=== PATIENT | male | born 1960 | race Caucasian/White ===

== ENCOUNTER 2019-05-29 15:13 | Inpatient (IN) | payer OTHER ==
[2019-05-29 17:19] VITALS: BMI 20.2
--- NOTE | 2019-05-29 18:02 | HP ---
CIWA Score Nausea/Vomitin-No Nausea/No Vomiting Muscle Tremors: None Anxiety: 4-Mod. Anxious/Guarded Agitation: 4-Moderately Restless Paroxysmal Sweats: 3 Orientation: 1-Uncertain about Date Tacttile Disturbances: 0-None Auditory Disturbances: 0-None Visual Disturbances: 0-None Headache: 0-None Present CIWA-Ar Total Score: 12 - Admission Criteria OASAS Guidelines: Admission for Medically Managed Detox: Requires at least one of the followin. CIWA greater than 12 2. Seizures within the past 24 hours 3. Delirium tremens within the past 24 hours 4. Hallucinations within the past 24 hours 5. Acute intervention needed for co occurring medical disorder 6. Acute intervention needed for co occurring psychiatric disorder 7. Severe withdrawal that cannot be handled at a lower level of care (continued vomiting, continued diarrhea, abnormal vital signs) requiring intravenous medication and/or fluids 8. Patient presents the following: CIWA greater than 12 Admission Criteria Met: Admission criteria met Admission ROS [facility] Chief Complaint: SEEKING ALCOHOL DETOX Allergies/Adverse Reactions: Allergies Allergy/AdvReac Type Severity Reaction Status Date / Time No Known Allergies Allergy Verified 05/29/19 17:02 History of Present Illness: HERE FOR ALCOHOL DETOX. CLIENT IS REFERRED BY [facility] WHERE HE IS ON METHADONE 70 MG DAILY. CLIENT REPORTS LAST DOSE 1 DAY AGO PENDING VERIFICATION. REPORTS DAILY ALCOHOL INTAKE. 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 DENIES IVDA, DRUG OVERDOSE , SEIZURES, BLACKOUTS. CLIENT CONT TO USE 4 BAGS OF HEROIN DAILY DESPITE BEING ON MMTP. THIS IS HIS FIRST ADMISSION HERE. LAST DETOX "YEARS ". LONGEST CLEAN TIME 7 YEARS RELAPSING OVER 20 YEARS AGO. DENIES ANY CLEAN TIME THIS PAST YEAR. LIVES W/ , UNEMPLOYED, DENIES LEGALS Exam Limitations: No Limitations - Ebola screening Have you traveled outside of the country in the last 21 days: No (N) Have you had contact with anyone from an Ebola affected area: No Do you have a fever: No - Review of Systems Constitutional: Changes in sleep, Unintentional Wgt. Loss EENT: reports: Blurred Vision (GLASSES), Dental Problems (MISSING TEETH), Other Respiratory: reports: Shortness of Breath (HX/O ASTHMA) Cardiac: reports: No Symptoms Reported GI: reports: Poor Fluid Intake : reports: No Symptoms Reported Musculoskeletal: reports: No Symptoms Reported Integumentary: reports: No Symptoms Reported Neuro: reports: No Symptoms reported Endocrine: reports: No Symptoms Reported Hematology: reports: No Symptoms Reported Psychiatric: reports: Orientated x3, Anxious Other Systems: Reviewed and Negative Patient History - Patient Medical History Hx Anemia: No Hx Asthma: Yes Hx Chronic Obstructive Pulmonary Disease (COPD): No Hx Cancer: No Hx Cardiac Disorders: No Hx Congestive Heart Failure: No Hx Hypertension: No Hx Hypercholesterolemia: No Hx Pacemaker: No HX Cerebrovascular Accident: No Hx Seizures: No Hx Dementia: No Hx Diabetes: No Hx Gastrointestinal Disorders: No Hx Liver Disease: No Hx Genitourinary Disorders: No Hx Sexually Transmitted Disorders: No Hx Renal Disease (ESRD): No Hx Thyroid Disease: No Hx Human Immunodeficiency Virus (HIV): No Hx Hepatitis C: No Hx Depression: No Hx Suicide Attempt: No Hx Bipolar Disorder: No Hx Schizophrenia: No Other Medical History: DENIES - Patient Surgical History Past Surgical History: No - PPD History Previous Implant?: Yes Documented Results: Positive w/o proof Implanted On Prior [facility] Admission?: No PPD to be Administered?: No - Smoking Cessation Smoking history: Current every day smoker Have you smoked in the past 12 months: Yes Aproximately how many cigarettes per day: 4 Cigars Per Day: 0 Hx Chewing Tobacco Use: No Initiated information on smoking cessation: Yes 'Breaking Loose' booklet given: 05/29/19 - Substance & Tx. History Hx Alcohol Use: Yes Hx Substance Use: Yes Substance Use Type: Alcohol, Heroin, Prescribed (MTD) Hx Substance Use Treatment: Yes (DOES NOT RECALL) - Substances abused Alcohol Substance route: Oral Frequency: Daily Amount used: 15 CANS OF 24 OZ Age of first use: 17 Date of last use: 05/29/19 (5 CANS) Heroin Substance route: Inhalation Frequency: Daily Amount used: 4 bags Age of first use: 18 Date of last use: 05/29/19 Admission Physical Exam [facility] - Vital Signs Vital Signs: Vital Signs - 24 hr 05/29/19 05/29/19 17:01 17:34 Temperature 97.6 F 97.6 F Pulse Rate 73 73 Respiratory 16 16 Rate Blood Pressure 130/85 130/85 - Physical General Appearance: Yes: Mild Distress, Anxious HEENTM: Yes: EOMI, Normocephalic, Normal Voice, JACLYN, Pharynx Normal, Other ( missing teeth) Respiratory: Yes: Chest Non-Tender, Lungs Clear, Normal Breath Sounds, No Respiratory Distress, No Accessory Muscle Use Neck: Yes: No masses,lesions,Nodules, Supple, Trachea in good position Breast: Yes: Breast Exam Deferred Cardiology: Yes: Regular Rhythm, Regular Rate, S1, S2 Abdominal: Yes: Non Tender, Soft, Increased Bowel Sounds Genitourinary: Yes: Within Normal Limits Back: Yes: Normal Inspection Musculoskeletal: Yes: full range of Motion, Gait Steady Extremities: Yes: Normal Capillary Refill, Normal Range of Motion, Non-Tender Neurological: Yes: Fully Oriented, Alert, Motor Strength 5/5, Depressed Affect ( denies si) Integumentary: Yes: Dry, Warm Lymphatic: Yes: Within Normal Limits - Diagnostic (1) Alcohol dependence with withdrawal, uncomplicated Current Visit: Yes Status: Acute (2) Opiate abuse, episodic Current Visit: Yes Status: Acute (3) Methadone maintenance therapy patient Current Visit: Yes Status: Chronic (4) Asthma Current Visit: Yes Status: Chronic Qualifiers: Asthma severity: mild Asthma persistence: intermittent Asthma complication type: unspecified Qualified Code(s): J45.20 - Mild intermittent asthma, uncomplicated (5) Nicotine dependence Current Visit: Yes Status: Chronic Qualifiers: Nicotine product type: cigarettes Substance use status: uncomplicated Qualified Code(s): F17.210 - Nicotine dependence, cigarettes, uncomplicated (6) Depressed Current Visit: Yes Status: Acute (7) History of tuberculosis Current Visit: Yes Status: Resolved Cleared for Admission S - Detox or Rehab S Level of Care: Medically Managed (ativan) Claeared for Rehab Admission: No Breathalyzer - Breathalyzer Breathalyzer: 0.038 Urine Drug Screen - Test Device Lot number: [id number] Expiration date: 01/09/21 - Control Is test valid?: Yes - Results Drug screen NEGATIVE: No Urine drug screen results: FEN-Fentanyl, MOP-Opiates, MTD-Methadone Inpatient Rehab Admission - Rehab Decision to Admit Inpatient rehab admission?: No
[2019-05-29] MEDS ORDERED: DICYCLOMINE HCL 10 MG CAPSULE PO PRN (18:11)
[2019-05-29] MEDS ORDERED: MAGNESIUM CITRATE 300 ML BOTTLE PO PRN (18:11)
[2019-05-29] MEDS ORDERED: MAGNESIUM HYDROX 2400MG/30ML ORAL SUSPENSION 30 ML CUP PO PRN (18:11)
[2019-05-29] MEDS ORDERED: ACETAMINOPHEN 325 MG TABLET (FP) PO PRN ×2 (18:11)
[2019-05-29] MEDS ORDERED: MENTHOL/PHENOL 1 EACH UD MM PRN (18:11)
[2019-05-29] MEDS ORDERED: P-EPHED 60MG/TRIPROLIDI 2.5MG TABLET PO PRN (18:11)
[2019-05-29] MEDS ORDERED: NICOTINE POLACRILEX 2 MG GUM BUC PRN (18:11)
[2019-05-29] MEDS ORDERED: MAG HYDROX/AL HYDROX/SIMETH 30 ML UNIT-DOSE CUP PO PRN (18:11)
[2019-05-29] MEDS ORDERED: IBUPROFEN 400 MG TABLET (FP) PO PRN (18:11)
[2019-05-29] MEDS ORDERED: hydrOXYzine PAMOATE 25 MG CAPSULE (FP) PO PRN (18:11)
[2019-05-29] MEDS ORDERED: BISMUTH SUBSALICYLATE 524 MG/30 ML UD PO PRN (18:11)
[2019-05-29] MEDS ORDERED: LORazepam 1 MG TABLET PO PRN (18:11)
[2019-05-29] MEDS ORDERED: ONDANSETRON *ODT* 4 MG TABLET SL PRN (18:11)
[2019-05-29] MEDS: THIAMINE HCL 100 MG TABLET (FP) PO SCH (22:12)
[2019-05-29] MEDS: METHOCARBAMOL 500 MG TABLET PO PRN (22:12)
[2019-05-29] MEDS: LORazepam 2 MG TABLET PO SCH (22:12)
[2019-05-29] MEDS: ALBUTEROL SO4 8 GM HFA INHALER IH PRN (22:13)
[2019-05-29] MEDS: MELATONIN 5 MG TABLETS PO PRN (22:13)
[2019-05-30] MEDS: LORazepam 2 MG TABLET PO SCH ×4 (05:47→22:31)
[2019-05-30] MEDS ORDERED: METHADONE 40 MG, METHADONE 30 MG PO ONE (09:15)
[2019-05-30 09:54] LABS: HEMOGLOBIN 11.9 GM/dL (11.7-16.9); MCH 28.2 pg (25.7-33.7); MCHC 33.1 g/dl (32.0-35.9); MEAN CELL VOLUME 85.4 fl (80-96); MEAN PLT VOLUME 9.2 fl (7.5-11.1); PLATELET COUNT 201 K/MM3 (134-434); RBC 4.21 M/mm3 (4.00-5.60); RDW 13.7 % (11.9-15.9); WHITE BLOOD COUNT 7.2 K/mm3 (4.0-10.0)
[2019-05-30] MEDS ORDERED: METHADONE HCL 10 MG TABLET PO ONE (10:00)
[2019-05-30 10:01] LABS: ALBUMIN 2.9 g/dl (3.4-5.0); BILIRUBIN,TOTAL 0.5 mg/dL (0.2-1); BLOOD UREA NITROGEN 10.2 mg/dL (7-18); CALCIUM 8.3 mg/dL (8.5-10.1); CREATININE 0.7 mg/dL (0.55-1.3); POTASSIUM 4.2 mmol/L (3.5-5.1); TOT PROT 5.7 g/dl (6.4-8.2)
--- NOTE | 2019-05-30 10:01 | PN ---
[facility] CIWA - CIWA Score Nausea/Vomitin-Mild Nausea/No Vomiting Muscle Tremors: 2 Anxiety: 2 Agitation: 2 Paroxysmal Sweats: 2 Orientation: 1-Uncertain about Date Tacttile Disturbances: 0-None Auditory Disturbances: 0-None Visual Disturbances: 0-None Headache: 1-Very Mild CIWA-Ar Total Score: 11 S Progress Note (SOAP) Subjective: 58 years old male admitted on 05/29/19 for alcohol withdrawal sx management treating with ativan detox regimen ate breakfast tolerated food and fluid well methadone 70mg verified and order today Objective: 05/30/19 10:00 Vital Signs Temperature 97.8 F 05/30/19 09:09 Pulse Rate 68 05/30/19 09:09 Respiratory Rate 16 05/30/19 09:09 Blood Pressure 126/78 05/30/19 09:09 O2 Sat by Pulse Oximetry (%) Laboratory Last Values WBC 7.2 K/mm3 (4.0-10.0) 05/30/19 08:00 RBC 4.21 M/mm3 (4.00-5.60) 05/30/19 08:00 Hgb 11.9 GM/dL (11.7-16.9) 05/30/19 08:00 Hct 36.0 % (35.4-49) 05/30/19 08:00 MCV 85.4 fl (80-96) 05/30/19 08:00 MCH 28.2 pg (25.7-33.7) 05/30/19 08:00 MCHC 33.1 g/dl (32.0-35.9) 05/30/19 08:00 RDW 13.7 % (11.9-15.9) 05/30/19 08:00 Plt Count 201 K/MM3 (134-434) 05/30/19 08:00 MPV 9.2 fl (7.5-11.1) 05/30/19 08:00 lab noted Assessment: 05/30/19 10:00 alcohol withdrawal Plan: ativan regimen
[2019-05-30] MEDS ORDERED: METHADONE HCL 40 MG DISPERSABLE TABLET ONE (10:15)
[2019-05-30] MEDS: PRENATAL VITAMINS W/ FOLIC ACID TABLET (FP) PO SCH (10:15)
[2019-05-30] MEDS ORDERED: METHADONE HCL 10 MG TABLET ONE (10:15)
[2019-05-30] MEDS: NICOTINE 14 MG/24 HOURS TOPICAL PATCH TD SCH (10:18)
[2019-05-30] MEDS ORDERED: FLU VACCINE QUAD 60 MCG/0.5 ML (MDV 19-20) IM ONE (12:00)
--- NOTE | 2019-05-30 12:00 | EKG ---
Test Reason : Blood Pressure : / mmHG Vent. Rate : 060 BPM Atrial Rate : 060 BPM P-R Int : 138 ms QRS Dur : 086 ms QT Int : 470 ms P-R-T Axes : 076 076 061 degrees QTc Int : 470 ms NORMAL SINUS RHYTHM POSSIBLE LEFT ATRIAL ENLARGEMENT BORDERLINE ECG NO PREVIOUS ECGS AVAILABLE Confirmed by SENAIT HERMAN, PRANEETH ([id number]) on 05/30/2019 11:59:53 AM Referred By: BENJAMIN Confirmed By:PRANEETH SAPP MD
[2019-05-30] MEDS: MELATONIN 5 MG TABLETS PO PRN (22:30)
[2019-05-30] MEDS: THIAMINE HCL 100 MG TABLET (FP) PO SCH (22:31)
[2019-05-30] MEDS: guaiFENesin 200 MG/10 ML 10 ML UNIT-DOSE CUPS PO PRN (22:31)
[2019-05-31] MEDS ORDERED: METHADONE HCL 10 MG TABLET ONE (05:09)
[2019-05-31] MEDS ORDERED: METHADONE HCL 40 MG DISPERSABLE TABLET ONE (05:10)
[2019-05-31] MEDS: LORazepam 1 MG TABLET PO SCH ×4 (05:38→22:13)
[2019-05-31] MEDS: METHADONE 40 MG, METHADONE 30 MG PO SCH (05:38)
[2019-05-31] MEDS ORDERED: METHADONE HCL 10 MG TABLET PO SCH (06:00)
[2019-05-31] MEDS: PRENATAL VITAMINS W/ FOLIC ACID TABLET (FP) PO SCH (10:26)
[2019-05-31] MEDS: NICOTINE 14 MG/24 HOURS TOPICAL PATCH TD SCH (10:26)
--- NOTE | 2019-05-31 10:30 | PN ---
[facility] CIWA - CIWA Score Nausea/Vomitin Muscle Tremors: 2 Anxiety: 1-Mildly Anxious Agitation: 0-Normal Activity Paroxysmal Sweats: 2 Orientation: 0-Oriented Tacttile Disturbances: 1-Very Mild Itch/Numbness Auditory Disturbances: 0-None Visual Disturbances: 1-Very Mild Sensitivity Headache: 0-None Present CIWA-Ar Total Score: 10 S Progress Note (SOAP) Subjective: c/o increase flatulence, and diarrhea, chills, sweats, decrease appetite and nausea Objective: 05/31/19 10:25 Vital Signs Temperature 98.4 F 05/31/19 09:48 Pulse Rate 69 05/31/19 09:48 Respiratory Rate 16 05/31/19 09:48 Blood Pressure 124/84 05/31/19 09:48 O2 Sat by Pulse Oximetry (%) Laboratory Last Values WBC 7.2 K/mm3 (4.0-10.0) 05/30/19 08:00 RBC 4.21 M/mm3 (4.00-5.60) 05/30/19 08:00 Hgb 11.9 GM/dL (11.7-16.9) 05/30/19 08:00 Hct 36.0 % (35.4-49) 05/30/19 08:00 MCV 85.4 fl (80-96) 05/30/19 08:00 MCH 28.2 pg (25.7-33.7) 05/30/19 08:00 MCHC 33.1 g/dl (32.0-35.9) 05/30/19 08:00 RDW 13.7 % (11.9-15.9) 05/30/19 08:00 Plt Count 201 K/MM3 (134-434) 05/30/19 08:00 MPV 9.2 fl (7.5-11.1) 05/30/19 08:00 Sodium 141 mmol/L (136-145) 05/30/19 08:00 Potassium 4.2 mmol/L (3.5-5.1) 05/30/19 08:00 Chloride 107 mmol/L (98-107) 05/30/19 08:00 Carbon Dioxide 29 mmol/L (21-32) 05/30/19 08:00 Anion Gap 4 MMOL/L (8-16) L 05/30/19 08:00 BUN 10.2 mg/dL (7-18) 05/30/19 08:00 Creatinine 0.7 mg/dL (0.55-1.3) 05/30/19 08:00 Est GFR (CKD-EPI)AfAm 120.56 05/30/19 08:00 Est GFR (CKD-EPI)NonAf 104.02 05/30/19 08:00 Random Glucose 242 mg/dL (74-106) H 05/30/19 08:00 Calcium 8.3 mg/dL (8.5-10.1) L 05/30/19 08:00 Total Bilirubin 0.5 mg/dL (0.2-1) 05/30/19 08:00 AST 19 U/L (15-37) 05/30/19 08:00 ALT 22 U/L (13-61) 05/30/19 08:00 Alkaline Phosphatase 85 U/L (45-117) 05/30/19 08:00 Total Protein 5.7 g/dl (6.4-8.2) L 05/30/19 08:00 Albumin 2.9 g/dl (3.4-5.0) L 05/30/19 08:00 RPR Titer Nonreactive (NONREACTIVE) 05/30/19 08:00 Assessment: 05/31/19 12:23 Aox3 no acute distress poor dentition full ROM no gait disturbance withdrawal sx Plan: increase PO fluids continue detox continue to monitor
[2019-05-31] MEDS: ALBUTEROL SO4 8 GM HFA INHALER IH PRN (15:18)
[2019-05-31 18:18] LABS: URINE APPEARANCE TURBID; URINE BILIRUBIN NEGATIVE (NEGATIVE); URINE COLOR DK YELLOW; URINE GLUCOSE (UA) NEGATIVE (NEGATIVE); URINE KETONE TRACE (NEGATIVE); URINE LEUK ESTERASE NEGATIVE (NEGATIVE); URINE NITRITE NEGATIVE (NEGATIVE); URINE PROTEIN TRACE (NEGATIVE); URINE UROBILINOGEN 0.2 mg/dL (0.2-1.0)
[2019-05-31] MEDS: MELATONIN 5 MG TABLETS PO PRN (22:13)
[2019-05-31] MEDS: THIAMINE HCL 100 MG TABLET (FP) PO SCH (22:13)
[2019-06-01] MEDS ORDERED: LORazepam 0.5 MG TABLET PO PRN
[2019-06-01] MEDS ORDERED: METHADONE HCL 10 MG TABLET ONE (04:55)
[2019-06-01] MEDS ORDERED: METHADONE HCL 40 MG DISPERSABLE TABLET ONE (04:56)
[2019-06-01] MEDS: LORazepam 0.5 MG TABLET PO SCH ×4 (05:20→22:12)
[2019-06-01] MEDS: METHADONE 40 MG, METHADONE 30 MG PO SCH (05:20)
[2019-06-01] MEDS: METHOCARBAMOL 500 MG TABLET PO PRN (07:43)
[2019-06-01] MEDS: guaiFENesin 200 MG/10 ML 10 ML UNIT-DOSE CUPS PO PRN ×2 (07:43→18:33)
[2019-06-01] MEDS: ALBUTEROL SO4 8 GM HFA INHALER IH PRN (09:16)
[2019-06-01] MEDS: PRENATAL VITAMINS W/ FOLIC ACID TABLET (FP) PO SCH (10:18)
[2019-06-01] MEDS: NICOTINE 14 MG/24 HOURS TOPICAL PATCH TD SCH (10:18)
--- NOTE | 2019-06-01 10:41 | PN ---
[facility] CIWA - CIWA Score Nausea/Vomitin-No Nausea/No Vomiting Muscle Tremors: None Anxiety: 2 Agitation: 0-Normal Activity Paroxysmal Sweats: 2 Orientation: 0-Oriented Tacttile Disturbances: 0-None Auditory Disturbances: 0-None Visual Disturbances: 0-None Headache: 0-None Present CIWA-Ar Total Score: 4 S Progress Note (SOAP) Subjective: c/o mild withdrawal symptoms. Objective: 06/01/19 10:39 Vital Signs 06/01/19 06/01/19 06/01/19 03:30 06:09 09:18 Temperature 98.9 F 97.1 F L Pulse Rate 57 L 66 Respiratory 16 16 16 Rate Blood Pressure 130/74 99/67 Lab Results WBC 7.2 K/mm3 (4.0-10.0) 05/30/19 08:00 RBC 4.21 M/mm3 (4.00-5.60) 05/30/19 08:00 Hgb 11.9 GM/dL (11.7-16.9) 05/30/19 08:00 Hct 36.0 % (35.4-49) 05/30/19 08:00 MCV 85.4 fl (80-96) 05/30/19 08:00 MCHC 33.1 g/dl (32.0-35.9) 05/30/19 08:00 RDW 13.7 % (11.9-15.9) 05/30/19 08:00 Plt Count 201 K/MM3 (134-434) 05/30/19 08:00 Sodium 141 mmol/L (136-145) 05/30/19 08:00 Potassium 4.2 mmol/L (3.5-5.1) 05/30/19 08:00 Chloride 107 mmol/L (98-107) 05/30/19 08:00 Carbon Dioxide 29 mmol/L (21-32) 05/30/19 08:00 Anion Gap 4 MMOL/L (8-16) L 05/30/19 08:00 BUN 10.2 mg/dL (7-18) 05/30/19 08:00 Creatinine 0.7 mg/dL (0.55-1.3) 05/30/19 08:00 Random Glucose 242 mg/dL (74-106) H 05/30/19 08:00 Calcium 8.3 mg/dL (8.5-10.1) L 05/30/19 08:00 Labs noted. Assessment: 06/01/19 10:40 AOX3, in no respiratory distress. Full ROM, ambulating in the unit. Mild Withdrawal symptoms. For d/c tomorrow. 06/01/19 10:40 Plan: continue detox. D/C in AM.
[2019-06-01] MEDS: THIAMINE HCL 100 MG TABLET (FP) PO SCH (22:12)
[2019-06-01] MEDS: MELATONIN 5 MG TABLETS PO PRN (22:12)
[2019-06-02] MEDS ORDERED: METHADONE HCL 10 MG TABLET ONE (04:55)
[2019-06-02] MEDS ORDERED: METHADONE HCL 40 MG DISPERSABLE TABLET ONE (04:55)
[2019-06-02] MEDS ORDERED: LORazepam 0.5 MG TABLET PO ONE (05:00)
[2019-06-02] MEDS: METHADONE 40 MG, METHADONE 30 MG PO SCH (05:34)
[2019-06-02] MEDS: guaiFENesin 200 MG/10 ML 10 ML UNIT-DOSE CUPS PO PRN (07:29)
[2019-06-02 09:10] VITALS: BP 113/73; PULSE 65; TEMP 96.7
[2019-06-02] MEDS: PRENATAL VITAMINS W/ FOLIC ACID TABLET (FP) PO SCH (10:07)
[2019-06-02] MEDS: NICOTINE 14 MG/24 HOURS TOPICAL PATCH TD SCH (10:07)
--- NOTE | 2019-06-02 12:01 | DS ---
[facility] Detox Discharge Summary Admission Date: 05/29/19 Discharge Date: 06/02/19 - History Present History: Alcohol Dependence Additional Comments: 58 years old male admitted on 05/29/19 for alcohol withdrawal sx management treaeted with ativan detox regimen patient tolerated well alert oriented x 3 cardiac s1s2 regular rate rhythm ekg indicate possible left atrial enlargement respiratory clear lung bilaterally on auscultation skin warm and dry Pertinent Past History: patient reports that he does not want to return to senior care states that he vomiting blood diarrhea feeling dizziness and trouble breathing encourage the patient resting on bed and possible ER evaluation patient refuses to go to the ER for further evaluation patient refuses to take one dose of imodium refuses ventolin pump patient refuses to lying on the bed patient insists to stay in day room social with peers patient states that he is going back to his senior care and continues methadone maintenance program patient agrees to bringing in lab report and medication list to methadone program for follow up patient also is interesting in [facility] that the patient prefers to go to [facility] first and possible go to the ER from [facility] - Physical Exam Results Vital Signs: Vital Signs Temperature 96.7 F L 06/02/19 09:09 Pulse Rate 65 06/02/19 09:09 Respiratory Rate 16 06/02/19 09:09 Blood Pressure 113/73 06/02/19 09:09 O2 Sat by Pulse Oximetry (%) Pertinent Admission Physical Exam Findings: alcohol withdrawal Laboratory Last Values WBC 7.2 K/mm3 (4.0-10.0) 05/30/19 08:00 RBC 4.21 M/mm3 (4.00-5.60) 05/30/19 08:00 Hgb 11.9 GM/dL (11.7-16.9) 05/30/19 08:00 Hct 36.0 % (35.4-49) 05/30/19 08:00 MCV 85.4 fl (80-96) 05/30/19 08:00 MCH 28.2 pg (25.7-33.7) 05/30/19 08:00 MCHC 33.1 g/dl (32.0-35.9) 05/30/19 08:00 RDW 13.7 % (11.9-15.9) 05/30/19 08:00 Plt Count 201 K/MM3 (134-434) 05/30/19 08:00 MPV 9.2 fl (7.5-11.1) 05/30/19 08:00 Sodium 141 mmol/L (136-145) 05/30/19 08:00 Potassium 4.2 mmol/L (3.5-5.1) 05/30/19 08:00 Chloride 107 mmol/L (98-107) 05/30/19 08:00 Carbon Dioxide 29 mmol/L (21-32) 05/30/19 08:00 Anion Gap 4 MMOL/L (8-16) L 05/30/19 08:00 BUN 10.2 mg/dL (7-18) 05/30/19 08:00 Creatinine 0.7 mg/dL (0.55-1.3) 05/30/19 08:00 Est GFR (CKD-EPI)AfAm 120.56 05/30/19 08:00 Est GFR (CKD-EPI)NonAf 104.02 05/30/19 08:00 Random Glucose 242 mg/dL (74-106) H 05/30/19 08:00 Calcium 8.3 mg/dL (8.5-10.1) L 05/30/19 08:00 Total Bilirubin 0.5 mg/dL (0.2-1) 05/30/19 08:00 AST 19 U/L (15-37) 05/30/19 08:00 ALT 22 U/L (13-61) 05/30/19 08:00 Alkaline Phosphatase 85 U/L (45-117) 05/30/19 08:00 Total Protein 5.7 g/dl (6.4-8.2) L 05/30/19 08:00 Albumin 2.9 g/dl (3.4-5.0) L 05/30/19 08:00 Urine Color Dk yellow 05/31/19 13:45 Urine Appearance Turbid 05/31/19 13:45 Urine pH 5.0 (5.0-8.0) 05/31/19 13:45 Ur Specific [place] 1.028 (1.010-1.035) 05/31/19 13:45 Urine Protein Trace (NEGATIVE) 05/31/19 13:45 Urine Glucose (UA) Negative (NEGATIVE) 05/31/19 13:45 Urine Ketones Trace (NEGATIVE) H 05/31/19 13:45 Urine Blood Negative (NEGATIVE) 05/31/19 13:45 Urine Nitrite Negative (NEGATIVE) 05/31/19 13:45 Urine Bilirubin Negative (NEGATIVE) 05/31/19 13:45 Urine Urobilinogen 0.2 mg/dL (0.2-1.0) 05/31/19 13:45 Ur Leukocyte Esterase Negative (NEGATIVE) 05/31/19 13:45 RPR Titer Nonreactive (NONREACTIVE) 05/30/19 08:00 lab noted Laboratory Last Values Vital Signs Temperature 96.7 F L 06/02/19 09:09 Pulse Rate 65 06/02/19 09:09 Respiratory Rate 16 06/02/19 09:09 Blood Pressure 113/73 06/02/19 09:09 O2 Sat by Pulse Oximetry (%) - Treatment Hospital Course: Detox Protocol Followed, Detoxed Safely, Responded well, Discharged Condition Good, Rehab Referral Accepted Patient has Accepted a Rehab Referral to: [facility] - Medication Discharge Medications: Ambulatory Orders Albuterol Sulfate Inhaler - [Ventolin HFA Inhaler -] 2 inhaler PO Q4HWA PRN Zolpidem Tartrate [Ambien] 10 mg PO HS 05/29/19 - Diagnosis (1) Alcohol dependence with withdrawal, uncomplicated Status: Acute (2) Asthma Status: Chronic Qualifiers: Asthma severity: mild Asthma persistence: intermittent Asthma complication type: unspecified Qualified Code(s): J45.20 - Mild intermittent asthma, uncomplicated (3) Methadone maintenance therapy patient Status: Chronic (4) Nicotine dependence Status: Acute Qualifiers: Nicotine product type: cigarettes Substance use status: in withdrawal Qualified Code(s): F17.213 - Nicotine dependence, cigarettes, with withdrawal - AMA Did Patient Leave Against Medical Advice: No
== END 2019-06-02 11:11 | disposition home or self-care (01) | DRG 775 ==
LOC: YASAS 15:13 → Y3N 18:23
PROVIDERS: ADMIT Allergy & Immunology; ATTEND Allergy & Immunology
PROC: HZ2ZZZZ Detoxification Services for Substance Abuse Treatment (ICD-10-PCS; principal; 2019-05-29)
DX: F10.230 Alcohol dependence with withdrawal, uncomplicated (principal); F12.20 Cannabis dependence, uncomplicated; F17.213 Nicotine dependence, cigarettes, with withdrawal; F32.9 Major depressive disorder, single episode, unspecified; J45.20 Mild intermittent asthma, uncomplicated; Z86.11 Personal history of tuberculosis
CPT/HCPCS: 36415; 71046-TC-FY; 80053; 81003; 85027; 86593; 93005; 93010